=== PATIENT | male | born 1965 ===

== ENCOUNTER 2016-10-27 11:36 | Observation (INO) | payer SELFPAY ==
[2016-10-27 11:40] VITALS: BMI 25.0
[2016-10-27 11:43] VITALS: RESP 20
--- NOTE | 2016-10-27 12:55 | C.PDOC ---
History Of Present Illness 51-year-old male, PMHx includes EtOH abuse, is brought to the emergency department by EMS with complaints of public intoxication. Patient was found on street with bottle of alcohol next to him. In ED, patient is unable to provide further Hx due to intoxication. Time Seen by Provider: 10/27/16 12:09 Chief Complaint (Nursing): Substance Abuse History Per: EMS History/Exam Limitations: intoxication Current Symptoms Are (Timing): Still Present Past Medical History Reviewed: Historical Data, Nursing Documentation, Vital Signs Vital Signs: Last Vital Signs Temp 98.1 F 10/27/16 19:45 Pulse 82 10/27/16 19:45 Resp 20 10/27/16 19:45 BP 134/88 10/27/16 19:45 Pulse Ox 95 10/27/16 19:45 Family History: States: Unknown Family Hx - Social History Hx Alcohol Use: Yes Hx Substance Use: No - Immunization History Hx Tetanus Toxoid Vaccination: No Hx Influenza Vaccination: No Hx Pneumococcal Vaccination: No Review Of Systems Review Of Systems: ROS cannot be obtained secondary to pt's inabilty to answer questions. Physical Exam - Physical Exam Appears: Non-toxic, No Acute Distress, Other (APPEARS INTOXICATED. ALCOHOL ON BREATH) Skin: Warm, Dry, No Rash Eye(s): bilateral: Normal Inspection, PERRL Nose: Normal Oral Mucosa: Moist Lips: Normal Appearing Neck: Normal ROM Respiratory: No Accessory Muscle Use Extremity: Normal ROM ED Course And Treatment O2 Sat by Pulse Oximetry: 99 Medical Decision Making Medical Decision Makin the pt is now a&ox3, ambulatory w steady gait, clinically sober. he is dc in stable condition. ED OBSERVATION Discharge: Yes Date of observation admission: 10/27/16 Time of observation admission: 12:40 - Observation admission statement Patient is being placed in observation because:: INTOXICATION - Goals of Observation Goals of observation are:: PENDING SOBRIETY, DISPO Disposition - Disposition Disposition: HOME/ ROUTINE Disposition Time: 16:52 Condition: IMPROVED - Clinical Impression Clinical Impression: Alcohol intoxication - Scribe Statement The provider has reviewed the documentation as recorded by the Scribe Amber Delacruz All medical record entries made by the Scribe were at my direction and personally dictated by me. I have reviewed the chart and agree that the record accurately reflects my personal performance of the history, physical exam, medical decision making, and the department course for this patient. I have also personally directed, reviewed, and agree with the discharge instructions and disposition.
[2016-10-27 17:06] VITALS: TEMP 98.1
[2016-10-27 21:57] VITALS: BP 134/88; PULSE 82
[2016-10-28 16:53] VITALS: O2SAT 99
== END 2016-10-28 16:53 | disposition home or self-care (01) ==
LOC: C.ER 11:36 → C.9OBSV 12:30
PROVIDERS: ADMIT Emergency Medicine; ATTEND Emergency Medicine
DX: F10.129 Alcohol abuse with intoxication, unspecified (principal)
CPT/HCPCS: 99285; G0378